=== PATIENT | male | born 1980 | race Caucasian/White ===

== ENCOUNTER 2023-09-15 06:44 | Emergency (ER) | payer BC, SELFPAY ==
--- NOTE | ~2023-09-15 | CT_ITS ---
EXAMINATION: CT lumbar spine wo con DATE: 09/15/2023 07:36 INDICATION: Low back pain TECHNIQUE: Computed tomography (CT) of the lumbar spine was performed without intravenous contrast. T he dose-length product (DLP) was 871.59 mGy-cm. Iterative reconstruction was used. COMPARISON: None FINDINGS: Bone alignment is normal. There is no fracture. There is mild loss of intervertebral disc s pace height at L2-3 and L5-S1. The vertebral body heights are maintained. There is a posterior disc b ulge at L5-S1 with mild bilateral neuroforaminal stenosis. IMPRESSION: 1. Mild lumbar spondylosis without acute findings. Reviewed, dictated and finalized at location F. [facility] FILE CLERK
[2023-09-15 06:45] VITALS: BP 141/99; PULSE 84; RESP 24; TEMP 36.6; O2SAT 100
[2023-09-15 07:13] VITALS: BP 122/89; PULSE 79; RESP 20; O2SAT 100
--- NOTE | 2023-09-15 07:14 | PC.NURSE ---
Report to [facility]. Awaiting ERP eval.
[2023-09-15] MEDS: CYCLOBENZAPRINE HCL 10 MG TABLET PO (07:44)
[2023-09-15] MEDS: MORPHINE SULFATE (*CRX) 2 MG/ML INJ IV PUSH (07:45)
[2023-09-15] MEDS: LIDOCAINE 5% PATCH 1 PATCH TRANSDERM (07:45)
--- NOTE | 2023-09-15 07:58 | ED.BACK ---
HPI - Back Pain/Injury General Chief Complaint: Back Pain/Injury Stated Complaint: lower back pain Time Seen by Provider: 09/15/23 06:54 History of Present Illness HPI Narrative: This is a 43-year-old male, with no significant past medical history, brought in by EMS for back pain. The patient states he was lifting a 10 lb tool box yesterday he felt a sharp low back pain. He complains of 10/10 sharp pain aggravated by movement. It radiated into the groin and into the right leg. Initially improved with heating packs, though today became significantly worse. He says this is associated with sensation of pressure in the groin. He denies loss of sensation, loss of bowel or bladder control or weakess/ numbness in the legs. Related Data Allergies Allergy/AdvReac Type Severity Reaction Status Date / Time No Known Allergies Allergy Mild Unverified 09/15/23 07:14 Review of Systems Review of Systems: CONSTITUTIONAL: Denies fever, chills, or sweats. CARDIOVASCULAR: Denies chest pain, palpitations, or edema. RESPIRATORY: Denies cough or dyspnea. GENITOURINARY: Denies dysuria or hematuria. MUSCULOSKELETAL: Low back pain Denies joint pain, or myalgia. NEUROLOGIC: Denies headache, numbness, dizziness, or weakness. PSYCHIATRIC: Denies anxiety or depression. PMFSH Past Medical History Medical History No significant medical problems Surgical History Surgical History No significant past surgical history Social History Social History Smoking status: Never smoker Alcohol intake: never Substance use: never Exam Narrative: GENERAL: Well-appearing, well-nourished, in mild distress due to pain HEAD: Normocephalic, atraumatic. EYES: PERRLA and EOMI. CHEST: Clear to auscultation. No respiratory distress. No wheezes rales or rhonchi HEART: Tachycardic with regular rhythm. No murmur heard. Normal peripheral pulses. ABDOMEN: Soft, nontender, nondistended, normal active bowel sounds. BACK: No midline tenderness to palpation, no step-off or crepitus EXTREMITIES: Normal range of motion. No edema. SKIN: Warm, dry, no rash. NEURO: No focal deficits. Alert and oriented x3. PSYCH: Normal mood and affect. Course Course Emergency Course: 09:08 - CT demonstrates disc bulge at L5-S1. On re-evaluation, the patient states he is unable to urinate. Bedside bladder scan shows retention of 300mL. 10:15 - I discussed the patient with neurosurgeon, Dr. Burciaga notes we are unable to obtain urgent/emergent MRI and recommends transfer. I discussed these recommendations with the patient who agrees. Discussed patient with [facility] transfer line. 10:25 - I discussed the patient with [facility] transfer coordinating nurse, RN Anne who accepts ED to ED transfer on behalf of Dr. Ely. Vital Signs Vital signs: Vital Signs Temperature 97.8 F 09/15/23 06:45 Pulse Rate 84 09/15/23 06:45 Respiratory Rate 24 H 09/15/23 06:45 Blood Pressure 141/99 H 09/15/23 06:45 Pulse Oximetry 100 09/15/23 06:45 Oxygen Delivery Room Air 09/15/23 06:45 Temperature 97.8 F 09/15/23 06:45 Pulse Rate 81 09/15/23 09:09 Respiratory Rate 18 09/15/23 09:09 Blood Pressure 122/76 09/15/23 09:09 Pulse Oximetry 98 09/15/23 09:09 Oxygen Delivery Room Air 09/15/23 06:45 MDM - Back Pain/Injury MDM Narrative Medical decision making narrative: plan: Patient will come imaging, reassess Differential Diagnosis Differential diagnosis: Likely lumbar radiculopathy and other ( disc herniation, fracture, other) Discharge Plan Discharge Clinical Impression: Acute urinary retention, Bulging lumbar disc Low back pain Qualifiers: Chronicity: acute Back pain laterality: midline Sciatica presence: unspecified whether sciatica present Qualified Code(s): M54.50 - Low
[2023-09-15 08:09] VITALS: BP 129/86; PULSE 65; RESP 18; O2SAT 100
--- NOTE | 2023-09-15 09:08 | PC.NURSE ---
Pt tried 4 times to urinate, said not able to go, feels the urge but noting comes. Bladder scanner showed 300ml., EDP made aware.
[2023-09-15 09:09] VITALS: BP 122/76; PULSE 81; RESP 18; O2SAT 98
[2023-09-15 10:30] VITALS: BP 140/86; PULSE 71; RESP 18; O2SAT 98
[2023-09-15 11:25] VITALS: BP 128/81; PULSE 81; RESP 18; O2SAT 100
== END 2023-09-15 11:27 | disposition short-term general hospital (02) ==
PROVIDERS: Emergency Provider Preventive Medicine Aerospace Medicine; PCP Family Medicine Sports Medicine
DX: R33.9 Retention of urine, unspecified (principal); M51.36 Other intervertebral disc degeneration, lumbar region; M54.50 Low back pain, unspecified
CPT/HCPCS: 72131; 96374; 99285; A9270; J2270